=== PATIENT | female | born 1945 | race Caucasian/White ===

== ENCOUNTER → 2017-06-16 | Outpatient (CLI) | payer MEDICARE ==
[~2017-06-16] MED LIST: AMBIEN 10MG10 MG PO; CEPHALEXIN500 M1 PO; FLONASE NASAL S16 GM NS; PRILOSEC 20MG20 MG PO; PROVENTIL0.09 MG/A1 IH; RT ADVAIR 228 DISKUS IH
== END ==
LOC: MC.RAD 13:17
DX: Z12.31 Encounter for screening mammogram for malignant neoplasm of breast (principal)

== ENCOUNTER 2018-06-28 13:23 | Outpatient (CLI) | payer MEDICARE ==
[~2018-06-28] VITALS: Ht 157.5 cm; Wt 54.0 kg
[2018-06-28] MEDS ORDERED: ZYRTEC 10MG10 MG PO (14:00)
[2018-06-28] MEDS ORDERED: ATROVENT I0.2 MG/1 M IH (14:01)
[2018-06-28] MEDS ORDERED: COZAAR 50MG50 MG/TAB PO (14:03)
[2018-06-28] MEDS ORDERED: MAG-OX 400400 MG/TAB PO (14:04)
[2018-06-28 14:09] VITALS: BP 149/58; PULSE 81; TEMP 97.5
--- NOTE | 2018-06-28 15:15 | NUR ---
Pt sathish reclast well. Pt discharged per ambulation.
== END 2018-06-28 15:16 | disposition home or self-care (01) ==
LOC: EUO 13:23
DX: M81.0 Age-related osteoporosis without current pathological fracture (principal)
CPT/HCPCS: J3489

== ENCOUNTER → 2018-07-06 | Outpatient (CLI) | payer MEDICARE ==
[~2018-07-06] MED LIST changes: +ATROVENT I0.2 MG/1 M IH; +COZAAR 50MG50 MG/TAB PO; +MAG-OX 400400 MG/TAB PO; +ZYRTEC 10MG10 MG PO
== END ==
LOC: MC.RAD 10:50
DX: Z12.31 Encounter for screening mammogram for malignant neoplasm of breast (principal)

== ENCOUNTER → 2019-10-07 | Outpatient (CLI) | payer MEDICARE | LOC: MC.RAD 07-08 13:00 | DX: Z12.31 Encounter for screening mammogram for malignant neoplasm of breast (principal) ==

== ENCOUNTER 2020-08-19 14:47 | Outpatient (CLI) | payer MEDICARE ==
[~2020-08-19] VITALS: Ht 157.5 cm; Wt 58.1 kg
[2020-08-19 15:41] VITALS: BP 149/63; PULSE 73; TEMP 97.3
[2020-08-19] MEDS ORDERED: XYZAL5 MG PO (16:20)
[2020-08-19] MEDS ORDERED: NICODERM C7 MG/PATCH TD (16:20)
[2020-08-19] MEDS ORDERED: XANAX .25M0.25 MG/TA PO (16:22)
[2020-08-19] MEDS ORDERED: LEXAPRO20 MG PO (16:23)
== END 2020-08-19 17:19 | disposition home or self-care (01) ==
LOC: EUO 14:47
DX: M81.0 Age-related osteoporosis without current pathological fracture (principal)
CPT/HCPCS: J3489

== ENCOUNTER → 2020-11-18 | Outpatient (CLI) | payer MEDICARE ==
[~2020-11-18] MED LIST changes: +LEXAPRO20 MG PO; +NICODERM C7 MG/PATCH TD; +XANAX .25M0.25 MG/TA PO; +XYZAL5 MG PO
== END ==
LOC: COL.RAD 11-11 13:30
DX: Z12.2 Encounter for screening for malignant neoplasm of respiratory organs (principal); Z87.891 Personal history of nicotine dependence

== ENCOUNTER → 2021-06-10 | Outpatient (CLI) | payer BC | LOC: COL.RAD 06-09 09:00 | DX: N18.30 Chronic kidney disease, stage 3 unspecified (principal); I10 Essential (primary) hypertension ==

== ENCOUNTER → 2022-06-23 | Outpatient (CLI) | payer MEDICARE | LOC: COL.RAD 13:51 | DX: Z12.2 Encounter for screening for malignant neoplasm of respiratory organs (principal); J90 Pleural effusion, not elsewhere classified; R91.8 Other nonspecific abnormal finding of lung field; Z87.891 Personal history of nicotine dependence ==